=== PATIENT | female | born 1955 | race Caucasian/White ===

== ENCOUNTER 2018-10-06 17:58 | Emergency (ER) | payer BC, SELFPAY ==
[2018-10-06 17:59] VITALS: BP 131/78; PULSE 97; RESP 20; TEMP 36.7; O2SAT 98; BMI 21.3
[2018-10-06 18:00] VITALS: BP 128/75; PULSE 88; RESP 18; TEMP 36.8; O2SAT 97
[2018-10-06 18:30] LABS: Bacteria 0 SEEN /hpf (None Seen); Mucous, Urine 0 SEEN /hpf (<or=2+)
[2018-10-06 18:37] LABS: Color, Urine Yellow (Yellow); Glucose, Dipstick Normal (Normal); Ketone-Dipstick Negative (Negative); Leukocyte Esterase-Dipstick 25 /ul (Negative); Nitrite-Dipstick Negative (Negative); Occult Blood-Urine 150 /ul (Negative); Protein-Dipstick Negative (Negative); Urine Bilirubin Dipstick Negative (Negative); Urine Clarity Clear (Clear); Urine Urobilinogen Normal (Normal)
[2018-10-06 18:45] LABS: Squamous Epithelial Cells - UA 0-5 SEEN /hpf (5-10)
[2018-10-06 18:46] LABS: Hyaline Cast 0-5 SEEN /lpf (0-5)
[2018-10-06 18:47] LABS: Red Blood Cells-Urine 0-5 SEEN /hpf (0-5); Transitional Epithelial - Ur 0-5 SEEN /hpf (0-5); White Blood Cells 0-5 SEEN /hpf (0-5)
--- NOTE | 2018-10-06 19:07 | ED.DCSUM_ITS ---
- ER Visit Summary Date of Service: 10/06/18 Chief Complaint: Left flank pain History of Present Illness: The patient is a 63 F with left flank pain that started this morning. Pain comes and goes, but she states there is no rhyme or reason to what triggers the pain. She denies urinary symptoms. She had did have similar symptoms in the past with bladder or kidney infection and was concerned this might be starting again. Physical Examination: Vital signs unremarkable. Head neck examination is normal. Heart is regular rate and rhythm. Lungs sounds are slightly diminished throughout. Abdomen is soft nontender. Back examination reveals mild tenderness in the left mid to lower lumbar paraspinal region. No true CVA tenderness on my exam. Test Results: Urinalysis shows 0-5 white cells, 0-5 epithelial cells, and 0 bacteria. Emergency Department Course and Treatment: Test results were discussed with the patient. At this time there is no indication for antibiotics. She will continue to monitor her symptoms and take ibuprofen as needed for pain. She is to return for worsening symptoms or other concerns. Treatment Plan: [] Disposition: Discharge Impression: Left flank pain, uncertain etiology This note was generated with [employer] dictation software. It may contain incorrect words, spelling, and punctuation that were not noted in review of the chart prior to signing ED Disposition - Plan for ED Patient: Chief Complaint: Flank Pain Referrals: Hany Monroe MD [Primary Care Provider] -
--- NOTE | 2018-10-06 19:07 | ED.DEP ---
ED Disposition - Plan for ED Patient: Disposition: Home or Assisted Living Chief Complaint: Flank Pain Instructions: ED Flank Pain Uncertain Cause Referrals: Hany Monroe MD [Primary Care Provider] - 1 Week if not improving
[2018-10-06 19:17] VITALS: RESP 18
== END 2018-10-06 19:18 | disposition home or self-care (01) ==
PROVIDERS: Emergency Provider Emergency Medicine; Family Provider Family Medicine; PCP Family Medicine
DX: R10.9 Unspecified abdominal pain (principal); Z72.0 Tobacco use
CPT/HCPCS: 81001; 99282

== ENCOUNTER 2019-08-15 18:59 | Emergency (ER) | payer BC, SELFPAY ==
[2019-08-15 19:01] VITALS: BP 121/82; PULSE 89; RESP 16; TEMP 36.5; O2SAT 96; BMI 20.7
--- NOTE | 2019-08-15 19:24 | EKG12_ITS ---
Test Reason : CP Blood Pressure : / mmHG Vent. Rate : 075 BPM Atrial Rate : 075 BPM P-R Int : 122 ms QRS Dur : 076 ms QT Int : 392 ms P-R-T Axes : 077 066 078 degrees QTc Int : 437 ms Normal sinus rhythm Normal ECG Confirmed by BRAVO MALIK MD ([id number]), video news editor TU HERRERA ([id number]) on 08/20/2019 11:27:16 AM Referred By: Confirmed By:BRAVO MALIK MD
--- NOTE | 2019-08-15 19:25 | RAD_ITS ---
STUDY: X-RAY CHEST REASON FOR EXAM: Female, 64 years old. Cough TECHNIQUE: Frontal view of the chest COMPARISON: X-ray chest May 24, 2017 FINDINGS: The lungs are clear. There are no pleural effusions. There is no pneumothorax. The heart is normal in size. The visualized osseous structures are within normal limits. RAD/Chest 1 View (Portable) IMPRESSION: No acute thoracic pathology. Electronically Signed: Hany Wang, at 19:37 EST Tel , Service support ,
[2019-08-15 19:30] VITALS: O2SAT 100
--- NOTE | 2019-08-15 19:30 | ED.DCSUM_ITS ---
- ER Visit Summary Date of Service: 08/15/19 Chief Complaint: Fever History of Present Illness: The patient is a 64 F with a fever for about a week. Associated with cough, congestion, nausea. Today she had some lightheadedness and near syncope, so she came to the ED for an evaluation. The near syncope oc curred immediately after coughing episode. Her had similar symptoms recently. She has a history of COPD. She does not use oxygen. She denies any recent antibiotics or steroids. Physical Examination: Afebrile and vital signs unremarkable. Patient alert and oriented. No acute distress. HEENT exam grossly unremarkable. Heart regular. Lungs clear. Extremities soft nontender. Skin appears normal. Test Results: EKG, labs, chest x-ray, influenza testing pending. Emergency Department Course and Treatment: Patient treated with IV fluids while awaiting results. EKG, chest x-ray, labs, influenza testing all unremarkable. Patient likely has a viral illness. Given the duration of her symptoms and fevers, she was concerned and need antibiotics. We discussed the risks and potential benefits. She will be treated with azithromycin. We will also treat with Tessalon Perles. She has breathing treatments and inhalers at home. Follow-up with her doctor. Return for any new or worsening issues. Treatment Plan: As above Disposition: Discharge Impression: 1. Acute bronchitis This note was generated with [employer] ([employer]) dictation software. It may contain incorrect words, spelling, and punctuation that were not noted in review of the chart prior to signing ED Disposition - Plan for ED Patient: Instructions: Acute Bronchitis Prescriptions: Azithromycin 250 mg PO DAILY #4 tab Prescription Printed Benzonatate [Tessalon Perle] 100 mg PO TID PRN PRN #20 cap PRN Reason: Cough Prescription Printed Referrals: Hany Monroe MD [Primary Care Provider] -
[2019-08-15] MEDS: Aspirin 81 MG TAB.CHEW 324 MG PO (19:32)
[2019-08-15 20:02] LABS: Absolute Lymphocyte Count 1.85 X10^3/uL (0.83-4.51); Absolute Neutrophil Count 5.9 X10^3/uL (2.0-7.7); Basophil# 0.09 X10^3/uL; Eosinophil# 0.22 X10^3/uL; Eosinophils% 2.5 % (0-5); Hematocrit 48.5 % (37-47); Hemoglobin 15.5 g/dL (12.0-15.0); Lymphocyte # 1.85 X10^3/ul (4.0); Lymphocyte % 21.1 % (19-41); Mean Corpuscular Hgb 29.6 pg (27.0-32.0); Mean Corpuscular Volume 92.7 fL (81-99); Mean Platelet Vol. 10.7 fl (6.2-12.0); Monocyte# 0.72 X10^3/uL; Monocyte% 8.2 % (0-10); NRBC Flagged by Analyzer 0 % (0-5); Neutrophil # 5.87 X10^3/uL (2.7-7.7); Neutrophil % 66.9 % (47-70); Platelet Count 242 K/mm3 (150-450); RBC Distribution Width CV 13.1 % (11.6-14.6); RBC Distribution Width SD 44.4 fl (35.1-43.9); Red Blood Count 5.23 M/mm3 (4.2-5.4); White Blood Count 8.8 K/mm3 (4.4-11.0)
[2019-08-15 20:15] LABS: Anion Gap 8 (5-15); BUN 5 mg/dL (7-18); BUN/Creat Ratio 5.9 RATIO (10-20); Calcium,Total 8.8 mg/dL (8.5-10.1); Chloride 103 mmol/L (98-107); Creatinine, Serum 0.85 mg/dL (0.55-1.02); EST Glomerular Filtration Rate 71 mL/min (>60); Est Glom Filt Rate - Afr Amer 86 mL/min (>60); Estimated Creatinine Clearance 49.96 ml/min; Glucose 125 mg/dL (74-106); Potassium 3.4 mmol/L (3.5-5.1); Sodium Level 135 mmol/L (136-145)
--- NOTE | 2019-08-15 20:35 | ED.DEP ---
ED Disposition - Plan for ED Patient: Instructions: Acute Bronchitis Prescriptions: Azithromycin 250 mg PO DAILY #4 tab Prescription Printed Guaifenesin 5 ml PO Q4H PRN PRN #100 ml PRN Reason: Cough Prescription Printed Benzonatate [Tessalon Perle] 100 mg PO TID PRN PRN #20 cap PRN Reason: Cough Prescription Printed Referrals: Hany Monroe MD [Primary Care Provider] -
[2019-08-15] MEDS: Azithromycin 250 MG Tablet 500 MG PO (20:42)
[2019-08-15 20:49] VITALS: BP 164/93; PULSE 77; RESP 15; O2SAT 99
== END 2019-08-15 20:51 | disposition home or self-care (01) ==
LOC: ED 19:20
PROVIDERS: Emergency Provider Emergency Medicine; Family Provider Family Medicine; PCP Family Medicine
DX: J44.0 Chronic obstructive pulmonary disease with (acute) lower respiratory infection (principal); J20.9 Acute bronchitis, unspecified; R55 Syncope and collapse; Z72.0 Tobacco use
CPT/HCPCS: 71045; 80048; 84484; 85025; 87804; 93005; 96360; 99285; J7040; A4216

== ENCOUNTER 2019-09-28 21:50 | Emergency (ER) | payer BC, SELFPAY ==
[2019-09-28 21:51] VITALS: BP 130/79; PULSE 100; RESP 24; TEMP 37.1; O2SAT 94; BMI 20.9
--- NOTE | 2019-09-28 23:17 | RAD_ITS ---
STUDY: X-RAY CHEST REASON FOR EXAM: Female, 64 years old. cough, fever -- x several days TECHNIQUE: Frontal and lateral views of the chest. COMPARISON: None. FINDINGS: There is hyperinflation of the lungs consistent with chronic obstructive lung disease (COPD). There is no demonstrated pleural abnormality. Normal size heart. Normal mediastinum and angel. Normal visualized pulmonary arteries. Normal visualized aortic arch and descending thoracic aorta. Normal visualized thoracic spine. Normal visualized ribs, clavicles, and shoulders. There is no demonstrated abnormality of the visualized soft tissue structures of the upper abdomen. RAD/Chest PA and Lateral IMPRESSION: There is hyperinflation of the lungs consistent with chronic obstructive lung disease (COPD). Electronically Signed: Peña Bermudez, at 1:46 EST Tel , Service support ,
--- NOTE | 2019-09-28 23:17 | ED.VIS.GEN ---
History of Present Illness Chief Complaint: Cough Narrative: Patient is a 64-year-old female who presents with a cough. When she woke yesterday morning she had sinus congestion, nasal drainage, sore throat. She has had a productive cough and increased wheezing. No muscle aches joint aches vomiting diarrhea. She complains of chest tightness but no chest pain. She has a history of COPD but really no other medical history. No sick contacts. She complains of subjective fever but has not checked a temperature. Past Medical History - Allergies and Home Meds Allergies/Adverse Reactions: Allergies amoxicillin [From Augmentin] Allergy (Verified 09/28/19 21:51) Rash clavulanic acid [From Augmentin] Allergy (Verified 09/28/19 21:51) Rash Primary Care Physician: Hany Monroe MD [Primary Care Provider] - Past Medical History: - - COPD Surgical History: noncontributory Smoking Status: Current every day smoker Review of Systems All systems negative except as indicated General: Reports: Chills, Sweats Eyes: Denies: Visual changes - bilaterally ENT: Reports: Rhinorrhea, Sore throat. Denies: Bilateral ear pain Cardiovascular: Denies: Chest pain Respiratory: Reports: Dyspnea, Cough, Sputum Gastrointestinal: Denies: Nausea, Vomiting Musculoskeletal: Denies: Myalgias, Arthralgias Skin: Denies: Rash Neurological: Denies: Headache Allergy: Denies: Uticaria Physical Exam Vital Signs/Narrative: Vital Signs Temp Pulse Resp BP Pulse Ox 09/28/19 21:51 98.8 F 100 24 H 130/79 H 94 Inital Vital Signs reviewed: Yes General: Well nourished Head: Normocephalic Eyes: EOMI ENT: Moist mucous membranes Neck: Supple Cardiovascular: Regular rate, Regular rhythm Respiratory: Wheezing, - - Tachypneic but not in distress, able to speak in full sentences, diffuse wheezing Abdomen: Soft, Nontender Skin: Normal color Neurological: Alert Psychological: Normal affect Diagnostic/Tx/Re-eval - Medical Decision Making Chest x-ray on my review shows chronic changes, no focal infiltrate or acute process. Rapid influenza is negative. Patient was given albuterol and Atrovent aerosols. I do believe this is related to viral bronchitis and COPD exacerbation. She was given first doses of prednisone and doxycycline here as well as prescriptions for the same and was discharged home. ED Disposition - Plan for ED Patient: Disposition: Home or Assisted Living Diagnosis: COPD exacerbation Instructions: Copd Flare Prescriptions: Doxycycline 100 mg PO BID #20 cap Prescription Printed predniSONE tablet 60 mg PO DAILY #12 tab Prescription Printed Referrals: Hany Monroe MD [Primary Care Provider] -
[2019-09-28 23:41] VITALS: PULSE 94; RESP 22
[2019-09-28] MEDS: Ipratropium/Albuterol Sulfate 3 ML AMPUL.NEB INHALATION (23:41)
[2019-09-28] MEDS: Albuterol 2.5 MG/3 ML VIAL.NEB. INHALATION (23:54)
[2019-09-28 23:55] VITALS: BP 131/70; PULSE 92; RESP 18; O2SAT 93
[2019-09-29] MEDS: predniSONE 20 MG Tablet 60 MG PO (01:02)
[2019-09-29] MEDS: Doxycycline 100 MG CAPSULE PO (01:02)
[2019-09-29 01:04] VITALS: PULSE 98; RESP 16; O2SAT 93
== END 2019-09-29 01:05 | disposition home or self-care (01) ==
PROVIDERS: Emergency Provider Emergency Medicine; Family Provider Family Medicine; PCP Family Medicine
DX: J44.1 Chronic obstructive pulmonary disease with (acute) exacerbation (principal); F17.200 Nicotine dependence, unspecified, uncomplicated; Z88.1 Allergy status to other antibiotic agents; Z88.0 Allergy status to penicillin
CPT/HCPCS: 71046; 87804; 94640; 99283

== ENCOUNTER 2019-11-08 06:27 | Day surgery (SDC) | payer BC, SELFPAY ==
[2019-10-31 09:29] VITALS: BMI 20.2
[2019-11-07 07:56] VITALS: BMI 20.2
--- NOTE | 2019-11-08 08:30 | CL.D_ITS ---
Patient Name: DEEPTI BRITTON Study Date: 11/08/2019 Performing: Raul Loyd MD Ht: 59.05 inches 150 cm : 1955 Wt: 99.2 lbs 45 kg Age: 64 Gender: female BSA: 1.37 PROCEDURE(S) PERFORMED [id number]/COR/LV CLINICAL PROFILE AND INDICATIONS Indications: Cardiomyopathy Heart Failure: None Stress/Imaging Stress/Image Study Performed: No CAD Presentations: No Sxs, no angina. CONCLUSIONS Non obstructive coronary arteries RECOMMENDATIONS Medical therapy DESCRIPTION OF PROCEDURE The patient arrived to the procedure lab. The risks and benefits of the procedure as well as a full d escription of our services here and current unavailability of surgical backup were fully explained to the patient and/or their significant other prior to the catheterization. The Timeout was completed, verifying the correct patient and procedure. The patient's procedural site was prepped and draped in the usual fashion. Local anesthetic was given subcutaneously to right groin region with Lidocaine 2%. Using a modified Seldinger technique, Left Coronary Artery selective angiography was performed in multiple views using a 5 Fr. JL4 catheter. Right Coronary Artery selective angiography was then perfo rmed in multiple views using a 5 Fr. 3DRC (Mendoza) catheter. Left Ventriculography was performed in HORNE projection using a 5 Fr. Pigtail catheter. LV to AO pullback pressures were then recorded.The ar terial sheath was pulled and manual compression applied until hemostasis is achieved. CORONARY ANGIOGRAPHY DOMINANCE: Left Dominant LEFT HEART ASSESSMENT Left Ventricular Ejection Fraction: by LV Gram 55 % Normal LV wall motion Normal Left Ventricular systolic function LEFT MAIN: Angiographically normal LEFT ANTERIOR DESCENDING ARTERY: Angiographically normal SEPTAL: 50 % Stenosis CIRCUMFLEX ARTERY: No significant disease noted RIGHT CORONARY ARTERY: Angiographically normal COMPLICATIONS No Complications PROCEDURE MEDICATIONS Versed 1 mg IV Versed 1 mg IV Oxygen: 2 L/min via nasal cannula Baby Aspirin (81mg) 1 Tabs PO @ 11/08/2019 07:06:10 SUMMARY OF HEMODYNAMIC DATA Time AIR REST ECG 07:09:10 AO 121/64 (88) SA 08:06:10 LV 127/6, 13 08:12:11 LV 114/-1, 11 08:12:38 LV 116/11, 18 08:13:32 LVp 119/6, 17 08:13:36 AO 118/64 (87) 08:13:41 Signed By Raul Loyd MD On 11/08/2019 08:29:30 Raul Loyd MD
== END 2019-11-08 13:45 | disposition home or self-care (01) ==
LOC: CLSP 06:28
PROVIDERS: PCP Family Medicine; Referring Provider Internal Medicine Cardiovascular Disease; Visit Provider Internal Medicine Cardiovascular Disease
DX: I42.8 Other cardiomyopathies (principal); I50.23 Acute on chronic systolic (congestive) heart failure; J44.9 Chronic obstructive pulmonary disease, unspecified; E78.5 Hyperlipidemia, unspecified; Z79.82 Long term (current) use of aspirin; Z79.899 Other long term (current) drug therapy; Z87.891 Personal history of nicotine dependence
CPT/HCPCS: 93458; 99152; 99153; J7040; Q9967; C1769; C1894

== ENCOUNTER 2021-09-29 11:30 | Inpatient (IN) | payer BC, MEDICARE, SELFPAY ==
[2021-09-29] VITALS (14 sets, daily range): BP systolic 106–145; BP diastolic 54–104; PULSE 70–82; RESP 17–24; TEMP 36.2–37; O2SAT 80–96; BMI 22.2; BMI 21.9
--- NOTE | 2021-09-29 11:46 | EKG12_ITS ---
Test Reason : SOB Blood Pressure : / mmHG Vent. Rate : 077 BPM Atrial Rate : 077 BPM P-R Int : 136 ms QRS Dur : 068 ms QT Int : 518 ms P-R-T Axes : 067 037 088 degrees QTc Int : 586 ms Normal sinus rhythm Nonspecific T wave abnormality Abnormal ECG Confirmed by KING SILVA, BRAVO ([id number]), sports editor DULCE PITTMAN ([id number]) on 10/05/2021 10:21:32 AM Referred By: ARTURO Confirmed By:BRAVO MALIK MD
[2021-09-29 12:22] LABS: Absolute Lymphocyte Count 1.16 X10^3/uL (0.83-4.51); Absolute Neutrophil Count 4.9 X10^3/uL (2.0-7.7); Basophil# 0.02 X10^3/uL; Basophil% 0.3 % (0-1); Hematocrit 43.8 % (37-47); Hemoglobin 14.4 g/dL (12.0-15.0); Lymphocyte # 1.16 X10^3/ul (0.83-4.51); Lymphocyte % 16.9 % (19-41); Mean Corp Hgb Conc 32.9 g/dL (32-36); Mean Corpuscular Volume 88.3 fL (81-99); Mean Platelet Vol. 11.2 fl (6.2-12.0); Monocyte# 0.76 X10^3/uL; Monocyte% 11.1 % (0-10); NRBC Flagged by Analyzer 0 % (0-5); Neutrophil # 4.89 X10^3/uL (2.7-7.7); Neutrophil % 71.1 % (47-70); Platelet Count 158 K/mm3 (150-450); RBC Distribution Width CV 13.7 % (11.6-14.6); RBC Distribution Width SD 44.5 fl (35.1-43.9); Red Blood Count 4.96 M/mm3 (4.2-5.4); White Blood Count 6.9 K/mm3 (4.4-11.0)
--- NOTE | 2021-09-29 12:25 | RAD_ITS ---
STUDY: X-RAY CHEST REASON FOR EXAM: Female, 66 years old. sob cough TECHNIQUE: AP COMPARISON: 09/28/2019 FINDINGS: Lungs are hyperexpanded. Reticular and ill-defined opacities in the lung bases, left more than right appear new since the prior study. There is no demonstrated pleural abnormality. Normal size heart. Normal mediastinum and angel. Normal visualized pulmonary arteries. Atherosclerosis of the aortic arch. No acute bony process. There is no demonstrated abnormality of the visualized soft tissue structures of the upper abdomen. RAD/Chest 1 View (Portable) IMPRESSION: 1. Left more than right basilar infiltrates suggesting early pneumonia although could partly be due to overlying breast/chest attenuation artifact. Electronically Signed: Todd Birmingham MD (Brooks) at 12:35 EST , Service support ,
[2021-09-29 12:36] LABS: AST(SGOT) 18 U/L (15-37); Alanine Aminotransfer ALT/SGPT 18 U/L (13-56); Alkaline Phosphatase 97 U/L (45-117); Anion Gap 7 (5-15); BNP,B-Type NATRIURETIC PEPTIDE 49.4 pg/mL (0-100); BUN 10 mg/dL (7-18); BUN/Creat Ratio 13.2 RATIO (10-20); Bilirubin, Direct 0.14 mg/dL (0.00-0.30); Calcium,Total 8.6 mg/dL (8.5-10.1); Chloride 103 mmol/L (98-107); Creatinine, Serum 0.76 mg/dL (0.55-1.02); EST Glomerular Filtration Rate 81 mL/min (>60); Est Glom Filt Rate - Afr Amer 98 mL/min (>60); Estimated Creatinine Clearance 58.13 ml/min; Globulin 4.1 g/dL (2.2-4.2); Glucose 124 mg/dL (74-106); Potassium 3.3 mmol/L (3.5-5.1); Protein, Total 7.1 g/dL (6.4-8.2); Sodium Level 139 mmol/L (136-145)
[2021-09-29 13:06] LABS: D-Dimer Quantitative (DVT/PE) 0.74 FEU/ug/m (0.27-0.49)
--- NOTE | 2021-09-29 13:23 | CT_ITS ---
STUDY: CTA CHEST REASON FOR EXAM: Female, 66 years old. hypoxia RADIATION DOSAGE (If Supplied By Facility): CTDIvol = ( ) mGy, DLP = ( ) mGycm TECHNIQUE: The examination was performed with the intravenous administration of IV 100mL Isovue-370. Post-processing of the angiographic images was performed, with multiplanar reformation and 3D reconstruction. Individualized dose optimization techniques were used for this CT. COMPARISON: 05/17/2017, chest x-ray earlier today FINDINGS: Normal enhancement of the main pulmonary artery and right and left pulmonary arteries. Normal enhancement of the bilateral peripheral pulmonary arteries. There is no demonstrated pulmonary embolism. Normal thoracic aorta and visualized great vessels. There is no demonstrated aortic dissection. Normal heart and pericardium. Normal mediastinum. Normal hilar regions. Normal visualized trachea and bronchi. The lungs are well expanded. Mild bilateral apical scarring. Moderate emphysema. Some bibasilar scarring. Normal pleura. Normal chest wall structures. Normal osseous structures. Normal visualized upper abdomen. CT/CTA Chest W/WO Contrast IMPRESSION: Normal CTA chest examination, without a demonstrated pulmonary embolism or arterial dissection. Electronically Signed: Eloy Bernstein MD at 14:38 EST Tel , Service support ,
--- NOTE | 2021-09-29 14:26 | EDS_ITS ---
HPI History of Present Illness Chief Complaint: Shortness of Breath Narrative Narrative: 66-year-old female presenting with viral symptoms of cough, fever, chills, shortness of breath. Patient states that she was previously hospitalized and had leftover oxygen at home. She has not had to use this until recently. Patient states she has a history of COPD and this is why she was initially placed on oxygen. She denies chest pain. She has not been vaccinated for COVID-19. Patient states he does not believe she has had COVID-19. She is unsure of any sick contacts. [facility] Medical History Acute on chronic systolic (congestive) heart failure Acute respiratory failure with hypoxemia (10/2019) Brown recluse spider bite Chronic systolic (congestive) heart failure COPD (chronic obstructive pulmonary disease) Diverticulosis Hyperlipidemia Lung nodule < 6cm on CT Mycoplasma pneumonia (10/2019) Nicotine dependence Non-ischemic cardiomyopathy Home Medications aspirin 81 mg tablet,delayed release 81 mg PO DAILY 10/31/19 [History Last Taken 11/08/19] atorvastatin 40 mg tablet 40 mg PO QHS 10/31/19 [History Last Taken Unknown] fluticasone fur. 100 mcg-umeclid 62.5 mcg-vilant 25 mcg inhalat.powder 1 inh INHALATION DAILY 11/10/20 [History Last Taken Unknown] diphenhydramine HCl 25 mg tablet 25 mg PO QHS 07/30/21 [History Last Taken Unknown] guaifenesin 600 mg tablet, extended release 12 hr 600 mg PO BID 07/30/21 [History Last Taken Unknown] hydroxyzine HCl 25 mg tablet 25 mg PO BID tab 07/30/21 [History Last Taken Unknown] carvedilol 3.125 mg tablet 6.25 mg PO BID #180 tab 09/10/21 [Rx Last Taken Unknown] metoprolol succinate 25 mg PO DAILY 09/29/21 [History Last Taken Unknown] Allergy/AdvReac Type Severity Reaction Status Date / Time amoxicillin [From Augmentin] Allergy Rash Verified 08/13/21 11:54 clavulanic acid Allergy Rash Verified 08/13/21 11:54 [From Augmentin] Family History Mother CAD (coronary artery disease) Surgical History History of left heart catheterization (11/08/19) History of partial hysterectomy Social History Smoking Status: Former smoker quit date: 09/26/19 pack-years: 23 how long ago did patient quit smokin years ago alcohol intake: never substance use type: does not use caffeine: Yes Type: coffee Number of servings: 1 ROS ROS ED Constitutional Constitutional ED: Reports chills and fever(s) Eyes Eyes: Denies blurry vision or diplopia ENT ENT ED: Denies rhinorrhea or sore throat Cardiovascular Cardiovascular: Denies chest pain or palpitations Respiratory/Chest Respiratory/Chest: Reports cough and dyspnea Gastrointestinal Gastrointestinal: Denies abdominal pain or nausea Genitourinary Genitourinary ED: Denies dysuria or hematuria Musculoskeletal Musculoskeletal: Reports myalgias; Denies arthralgias Integumentary Denies abscess or rash Neurologic Neurologic: Denies headache(s) or weakness Psychiatric Psychiatric: Denies anxiety or depression EXAM Physical Exam Const Vital Signs: 09/29/21 11:30 09/29/21 12:14 Temperature 97.6 F L 98.6 F Temperature Source Temporal Temporal Pulse Rate 82 80 Respiratory Rate 24 H 19 H Respiratory Effort Short of Breath Labored Accessory Muscle Use Respiratory Depth Normal Respiratory Pattern Hyperpnea Blood Pressure 118/104 H 106/78 Blood Pressure Mean 108 87 Pulse Ox 80 95 Oxygen Delivery Method Room Air Nasal Cannula Oxygen Flow Rate (L/min) 2 Positive well nourished General Appearance ED: NAD; Negative for pallor HEENT Reports moist mucous membranes atraumatic Eyes PERRL and EOMs intact bilaterally Neck no lymphadenopathy and supple Resp normal respiratory effort and clear to auscultation bilaterally Cardio regular rate and regular rhythm Neuro oriented x3 and CN's II-XII intact bilaterally Sensorium / Orientation: alert Psych mental status grossly normal Thought Process: normal thought process Skin General Skin Exam: Negative for jaundice or pallor Rashes: no rashes MDM MDM MDM Narrative Medical decision making narrative: Patient seen and evaluated for shortness of breath. Her lungs are clear to auscultation however she is hypoxic on oxygen. She is given dexamethasone and tested for COVID-19 and she is positive. I did order her breathing treatments however she declined this. Her CBC is unremarkable. CMP is also unremarkable with exception of potassium 3.3. BNP is 49. Chest x-ray on my interpretation is left greater than right lower lobe infiltrates. Radiologist does agree. D-dimer is elevated at 0.[address] of the chest is obtained which shows no pulmonary emboli or dissection. Patient remained hypoxic. When I reevaluated her she was on 3-1/2 L and 89% in bed sitting. Ultimately should she is requiring so much oxygen I recommended that she be admitted for further treatment. Discussed with hospitalist for admission. Impression: 1. COVID-19 pneumonitis 2. Hypoxic respiratory failure Lab Data Attestation: I reviewed the patient's lab results. Labs: Laboratory Results - last 24 hr 09/29/21 09/29/21 09/29/21 12:08 12:08 12:08 WBC 6.9 RBC 4.96 Hgb 14.4 Hct 43.8 MCV 88.3 MCH 29.0 MCHC 32.9 RDW Std Deviation 44.5 H RDW Coeff of Aminah 13.7 Plt Count 158 MPV 11.2 Immature Gran % (Auto) 0.600 Neut % (Auto) 71.1 H Lymph % (Auto) 16.9 L Dorado % (Auto) 11.1 H Eos % (Auto) 0.0 Baso % (Auto) 0.3 Absolute Neuts (auto) 4.9 Absolute Lymphs (auto) 1.16 Nucleated RBC % 0 D-Dimer Quant (PE/DVT) Sodium 139 Potassium 3.3 L Chloride 103 Carbon Dioxide 29.0 Anion Gap 7 BUN 10 Creatinine 0.76 Estim Creat Clear Calc 58.13 Est GFR (MDRD) Af Amer 98 Est GFR (MDRD) Non-Af 81 BUN/Creatinine Ratio 13.2 Glucose 124 H Calcium 8.6 Total Bilirubin 0.50 Direct Bilirubin 0.14 AST 18 ALT 18 Alkaline Phosphatase 97 B-Natriuretic Peptide 49.4 Total Protein 7.1 Albumin 3.0 L Globulin 4.1 09/29/21 12:08 WBC RBC Hgb Hct MCV MCH MCHC RDW Std Deviation RDW Coeff of Aminah Plt Count MPV Immature Gran % (Auto) Neut % (Auto) Lymph % (Auto) Dorado % (Auto) Eos % (Auto) Baso % (Auto) Absolute Neuts (auto) Absolute Lymphs (auto) Nucleated RBC % D-Dimer Quant (PE/DVT) 0.74 H* Sodium Potassium Chloride Carbon Dioxide Anion Gap BUN Creatinine Estim Creat Clear Calc Est GFR (MDRD) Af Amer Est GFR (MDRD) Non-Af BUN/Creatinine Ratio Glucose Calcium Total Bilirubin Direct Bilirubin AST ALT Alkaline Phosphatase B-Natriuretic Peptide Total Protein Albumin Globulin Radiography Diagnostic Testing: Clinical Impression(s) from Imaging Studies Chest X-Ray 09/29/21 12:25 IMPRESSION: 1. Left more than right basilar infiltrates suggesting early pneumonia although could partly be due to overlying breast/chest attenuation artifact. Electronically Signed: Todd Birmingham MD (Brooks) at 12:35 EST , Service support , Chest CTA 09/29/21 13:23 IMPRESSION: Normal CTA chest examination, without a demonstrated pulmonary embolism or arterial dissection. Electronically Signed: Eloy Bernstein MD at 14:38 EST Tel , Service support , Discharge Plan Triage Chief Complaint: Shortness of Breath ED Provider: Herve Sanchez Dx/Rx/DC Orders Prescriptions: No Action aspirin [Adult Aspirin Regimen] 81 mg tablet,delayed release (DR/EC) 81 mg PO DAILY RF: 0 atorvastatin 40 mg tablet 40 mg PO QHS RF: 0 Trelegy Ellipta 100-62.5-25 mcg blister with device 1 inh INHALATION DAILY RF: 0 hydroxyzine HCl 25 mg tablet 25 mg PO BID RF: 0 guaifenesin [Mucinex] 600 mg tablet extended release 12hr 600 mg PO BID RF: 0 diphenhydramine HCl [Allergy Relief(diphenhydramin)] 25 mg tablet 25 mg PO QHS RF: 0 metoprolol succinate 25 mg tablet extended release 24 hr 25 mg PO DAILY RF: 0 carvedilol 3.125 mg tablet 6.25 mg PO BID Qty: 180 RF: 3 Primary Care Provider: Hany Monroe
[2021-09-29] MEDS: dexAMETHasone 10 MG/ML Vial 6 MG IV (14:57)
--- NOTE | 2021-09-29 15:11 | HP.PCM.HOS_ITS ---
HPI - General General Date of Admission: 09/29/21 Date of Service: 09/29/21 Chief Complaint: Dyspnea, cough. HPI Narrative The patient is a 66 y/o F w/ PMHx: Systolic CHF/Non-ischemic cardiomyopathy, HTN, HLD, COPD, Hx Tobacco use who presents to the [facility] ED on 09/29/21 with history of onset COVID type symptoms on Monday with fever, chills, nausea, emesis, diarrhea, body aches, cough and dyspnea with unvaccinated COVID status prompting her to use as needed oxygen which she had at home from her prior admission 06/2021 with pneumonia at outside facility however she remained continuously hypoxic and had increased work of breathing prompting ED evaluation. The is also present and is unvaccinated but denies any current symptoms. Work-up in the ED included T 97.6, heart rate 82, BP 118/104, respiratory rate 24, initially 80% on room air with improvement to 95% on 2 L nasal cannula, CBC with WBC 6.9, hemoglobin 14.4, platelet 158 without marked shift, D-dimer 0.74, CMP with potassium 3.3, glucose 124, hepatic profile other pardo unremarkable, BNP 49.4, chest x-ray with left greater than right basilar infiltrates consistent with early pneumonia, CTPA however with no evidence of pulmonary emboli or arterial dissection with well-expanded lungs and noted mild apical bilateral scarring with moderate emphysematous changes and some bibasilar scarring, Covid rapid antigen positive. In the ED patient ministered Decadron therapy and attempted aerosols however declined. [facility] Medical History (Updated 09/29/21 @ 19:[address] Sri Read MD) Acute on chronic systolic (congestive) heart failure Acute respiratory failure with hypoxemia (10/2019) Brown recluse spider bite Chronic systolic (congestive) heart failure Congestive heart failure (CHF) COPD (chronic obstructive pulmonary disease) Diverticulosis Former smoker Hyperlipidemia Lung nodule < 6cm on CT Mycoplasma pneumonia (10/2019) Nicotine dependence Non-ischemic cardiomyopathy On home oxygen therapy Pneumonia due to COVID-19 virus Home Medications aspirin 81 mg tablet,delayed release 81 mg PO DAILY 10/31/19 [History Last Taken 09/28/21] atorvastatin 40 mg tablet 40 mg PO QHS 10/31/19 [History Last Taken 09/28/21] fluticasone fur. 100 mcg-umeclid 62.5 mcg-vilant 25 mcg inhalat.powder 1 inh INHALATION DAILY 11/10/20 [History Last Taken 09/29/21] guaifenesin 600 mg tablet, extended release 12 hr 600 mg PO BID 07/30/21 [History Last Taken 09/29/21] hydroxyzine HCl 25 mg tablet 25 mg PO BID tab 07/30/21 [History Last Taken 09/29/21] carvedilol 3.125 mg tablet 6.25 mg PO BID #180 tab 09/10/21 [Rx Last Taken 09/29/21] diphenhydramine HCl [Sleep Time] 25 mg PO QHS 09/29/21 [History Last Taken 09/28/21] phenylephrine HCl [Sudafed PE] 10 mg PO BID 09/29/21 [History Last Taken 09/29/21] Allergy/AdvReac Type Severity Reaction Status Date / Time amoxicillin [From Augmentin] Allergy Rash Verified 08/13/21 11:54 clavulanic acid Allergy Rash Verified 08/13/21 11:54 [From Augmentin] Family History (Updated 09/29/21 @ 19:[address] Sri Read MD) Mother CAD (coronary artery disease) Father Heart disease s/p pacemaker status. Surgical History (Updated 09/29/21 @ 19:[address] Sri Read MD) History of left heart catheterization (11/08/19) History of partial hysterectomy S/P chest tube placement Social History (Updated 09/29/21 @ 19:[address] Sri Read MD) household members: spouse Smoking Status: Former smoker quit date: 09/26/19 pack-years: 23 how long ago did patient quit smoking: Quit 09/26/2019, smoked 1/2 ppd since teen. alcohol intake: never substance use type: does not use caffeine: Yes Type: coffee Number of servings: 1 ROS ROS Narrative Admission Review of Systems: CONSTITUTIONAL: No weight loss, + fever, chills, weakness or fatigue. HEENT: + Headache. Eyes: No visual loss, blurred vision, double vision or yellow sclerae. Ears, Nose, Throat: No hearing loss, sneezing. SKIN: No rash or itching, lesions, wounds. CARDIOVASCULAR: No chest pain, chest pressure or chest discomfort, palpitations, edema, orthopnea, syncopal events. RESPIRATORY: + shortness of breath, cough, No marked sputum, wheezing, hemoptysis. GASTROINTESTINAL: + anorexia, nausea, vomiting, diarrhea, No abdominal pain, melena, BRBPR. GENITOURINARY: No dysuria, frequency, urgency or retention. NEUROLOGICAL: + headache, No dizziness, syncope, paralysis, ataxia, numbness or tingling in the extremities, focal weakness, change in bowel or bladder control, seizure. MUSCULOSKELETAL: + muscle, back pain, joint pain or stiffness. HEMATOLOGIC: No anemia, bleeding or bruising. LYMPHATICS: No enlarged nodes. No history of splenectomy. PSYCHIATRIC: No history of depression or anxiety. ENDOCRINOLOGIC: No reports of sweating, cold or heat intolerance. No polyuria or polydipsia. ALLERGIES: No history of asthma, hives, eczema or rhinitis. Vital Signs Vital Signs Vital Signs: 09/29/21 11:30 09/29/21 12:14 Temperature 97.6 F L 98.6 F Temperature Source Temporal Temporal Pulse Rate 82 80 Respiratory Rate 24 H 19 H Respiratory Effort Short of Breath Labored Accessory Muscle Use Respiratory Depth Normal Respiratory Pattern Hyperpnea Blood Pressure 118/104 H 106/78 Blood Pressure Mean 108 87 Pulse Ox 80 95 Oxygen Delivery Method Room Air Nasal Cannula Oxygen Flow Rate (L/min) 2 Weight Weight: 110 lb Body Mass Index (BMI) 22.2 Physical Exam Narrative Physical Examination: General: Awake, alert, oriented x 3 and cooperative, seated upright in the ED bed, fatigued and ill-appearing, mildly increased respiratory rate. Skin: Normal color, normal turgor, no icterus, no cyanosis. HEENT: AT/NC, EOMI, PERRLA, moderately dry MM, no carotid bruits or JVD noted. Lungs: Diffusely diminished, greater bases, increased respiratory rate, increased work of breathing, no rales, ronchi or wheezing. Heart: Regular rate and regular rhythm; no gallop, rub audible. Abdomen: Soft, NTTP, ND, distant hyperactive bowel sounds, no HSM. Extremities: No cyanosis, clubbing, or edema. Neurological: Patient awake, alert, oriented as noted, cognitive function intact; pupils equally reactive to light and accommodation, cranial nerves II- XII grossly normal, moving all 4 extremities, no focal deficits, strength severely globally decreased secondary to acute presentation. Psychiatric: Affect appears fatigued, ill-appearing, evidence of respiratory distress, no acute evidence of depressive or anxiety feelings. Results Lab / Micro Data Result Diagrams: 09/29/21 12:08 09/29/21 12:08 Labs: Laboratory Results - last 24 hr 09/29/21 12:08: WBC 6.9, RBC 4.96, Hgb 14.4, Hct 43.8, MCV 88.3, MCH 29.0, MCHC 32.9, RDW Std Deviation 44.5 H, RDW Coeff of Aminah 13.7, Plt Count 158, MPV 11.2, Immature Gran % (Auto) 0.600, Neut % (Auto) 71.1 H, Lymph % (Auto) 16.9 L, Eddy % (Auto) 11.1 H, Eos % (Auto) 0.0, Baso % (Auto) 0.3, Absolute Neuts (auto) 4.9, Absolute Lymphs (auto) 1.16, Nucleated RBC % 0 09/29/21 12:08: Sodium 139, Potassium 3.3 L, Chloride 103, Carbon Dioxide 29.0, Anion Gap 7, BUN 10, Creatinine 0.76, Estim Creat Clear Calc 58.13, Est GFR (MDRD) Af Amer 98, Est GFR (MDRD) Non-Af 81, BUN/Creatinine Ratio 13.2, Glucose 124 H, Calcium 8.6, Total Bilirubin 0.50, Direct Bilirubin 0.14, AST 18, ALT 18, Alkaline Phosphatase 97, Total Protein 7.1, Albumin 3.0 L, Globulin 4.1 09/29/21 12:08: B-Natriuretic Peptide 49.4 09/29/21 12:08: D-Dimer Quant (PE/DVT) 0.74 H* Micro: Microbiology 09/29/21 12:05 Nasal Secretion SARS-CoV-2 Antigen (Rapid) - Final SARS-CoV-2 (COVID 19) Radiology Impression Chest X-Ray 09/29/21 12:25 IMPRESSION: 1. Left more than right basilar infiltrates suggesting early pneumonia although could partly be due to overlying breast/chest attenuation artifact. Electronically Signed: Todd Birmingham MD (Brooks) at 12:35 EST , Service support , Chest CTA 09/29/21 13:23 IMPRESSION: Normal CTA chest examination, without a demonstrated pulmonary embolism or arterial dissection. Electronically Signed: Eloy Bernstein MD at 14:38 EST Tel , Service support , Assessment & Plan Assessment/Plan (1) Acute respiratory failure with hypoxia: PLAN: The patient is a 66 y/o F w/ PMHx: Systolic CHF/Non-ischemic cardiomyopathy, HTN, HLD, COPD, Hx Tobacco use who presents to the [facility] ED on 09/29/21 with history of onset COVID type symptoms on Monday with fever, chills, nausea, emesis, diarrhea, body aches, cough and dyspnea with unvaccinated COVID status prompting her to use as needed oxygen which she had at home from her prior admission 06/2021 with pneumonia at outside facility however she remained continuously hypoxic and had increased work of breathing prompting ED evaluation. #1. Acute Hypoxic Respiratory Failure secondary to Acute Viral Syndrome, COVID- 19: Will admit to the [facility] telemetry, maintain on COVID precautions, will maintain on oxygen with wean as tolerated to room air, PRN albuterol, HOB, IS parameters w/ pending sputum cultures, respiratory viral panel and urine antigens, will obtain procalcitonin, CRP, CPK, Ferritin, LDH, continue supportive care including q 2 hour turning including prone given no prone bed availability and judicious hydration, closely monitor for worsening status for ARDS and multiorgan failure, will initiate and continue IV decadron x 10 doses, given presentation will also initiate IV remdesivir but defer to discretion of Infectious disease. If respiratory status worsens and patient requires airvo or BIPAP transition will initiate barcitinib regimen additionally with ID involvement. #2. Hypokalemia: Admission K+ 3.3, magnesium level requested, supplementation given, repeat level in AM. #3. Mild hyperglycemia: Admission glucose 124, likely stress response, will obtain A1c to be cautious. #4. Systolic CHF/nonischemic cardiomyopathy: We will continue patient aspirin, statin, beta-dahiana therapy, not on MARILYNN inhibitor/ARB, defer to outpatient. #5. Hypertension: Continue home regimen including beta-dahiana with hold parameters as needed, PRN hydralazine. #6. Hyperlipidemia: We will continue patient on statin therapy. #7. Chronic COPD: Patient refusing aerosols as these make her very anxious, will continue therefore patient home inhaler as well as as needed albuterol inhaler if needed, encourage head of bed, I-S, continue treatments as noted above #1. #8. Former tobacco use: Encourage continued tobacco cessation. #9. DVT prophylaxis: SCDs, Lovenox. #10. CODE status: Patient does not have healthcare power of business attorney nor living will in place. Given Covid pneumonia with significant hypoxia in the setting of unvaccinated status, discussed CODE status at length including difference between FULL code, DNR-CCA and DNR-CC status. Following discussions about the differences in these status, requested Full Code status. Amenable to airvo, BIPAP, remdesivir and barcitinib if appropriate. Advanced Care Planning Face to Face Time: 16 minutes. Charges/Coding Visit Charges Inpatient E&M: 26037 Init Hosp L3 Procedures Hospitalists Procedures: 34067 Advncd Care Plan 30 Min
--- NOTE | 2021-09-29 15:26 | NURSING ---
MED SURG GER COVLINETTE 19, HYPOXIC RESP FAILURE
[2021-09-29 15:41] LABS: Troponin-I HS 6 pg/mL (3.0-54.0)
[2021-09-29 17:00] LABS: Ferritin 165 ng/mL (8-252); LDH 160 U/L (84-246)
--- NOTE | 2021-09-29 17:08 | PCS.PANDOC ---
PANDEMIC DOCUMENTATION INITIATED: Date: 05/17/2021 Time: 190
[2021-09-29] MEDS: 0.9% Normal Saline 1,000 ML 100 ML IV (18:20)
[2021-09-29] MEDS: 0.9% Saline Lock 10 ML Syringe IV (18:21)
[2021-09-29] MEDS: Potassium Chloride Oral Tablet 20 MEQ 40 MEQ PO (18:37)
[2021-09-29 18:46] LABS: Procalcitonin 0.04 ng/mL (0.00-0.09)
[2021-09-29] MEDS: Enoxaparin 30 MG/0.3 ML Syringe SC (21:26)
[2021-09-29] MEDS: Atorvastatin Calcium 40 MG Tablet PO (21:26)
[2021-09-29] MEDS: hydrOXYzine PAM 25 MG Capsule PO (22:28)
[2021-09-29] MEDS: guaiFENesin 600 MG Tablet PO (22:28)
[2021-09-29] MEDS: Carvedilol 6.25 MG Tablet PO (22:28)
[2021-09-29] MEDS: MELATONIN 3 MG TABLET PO (22:32)
[2021-09-30] VITALS (11 sets, daily range): BP systolic 92–143; BP diastolic 61–84; PULSE 66–92; RESP 16–20; TEMP 35.6–36.3; O2SAT 88–96
[2021-09-30 06:26] LABS: Absolute Lymphocyte Count 0.76 X10^3/uL (0.83-4.51); Absolute Neutrophil Count 4.2 X10^3/uL (2.0-7.7); Hematocrit 41.4 % (37-47); Hemoglobin 13.2 g/dL (12.0-15.0); Lymphocyte # 0.76 X10^3/ul (0.83-4.51); Lymphocyte % 14.1 % (19-41); Mean Corp Hgb Conc 31.9 g/dL (32-36); Mean Corpuscular Hgb 28.4 pg (27.0-32.0); Mean Platelet Vol. 10.9 fl (6.2-12.0); Monocyte# 0.44 X10^3/uL; Monocyte% 8.2 % (0-10); NRBC Flagged by Analyzer 0 % (0-5); Neutrophil # 4.16 X10^3/uL (2.7-7.7); Neutrophil % 77.3 % (47-70); Platelet Count 150 K/mm3 (150-450); RBC Distribution Width CV 13.6 % (11.6-14.6); RBC Distribution Width SD 44.9 fl (35.1-43.9); Red Blood Count 4.65 M/mm3 (4.2-5.4); White Blood Count 5.4 K/mm3 (4.4-11.0)
[2021-09-30 07:00] LABS: ALB/GLOB Ratio 0.7 RATIO (0.9-2.4); AST(SGOT) 13 U/L (15-37); Alanine Aminotransfer ALT/SGPT 18 U/L (13-56); Albumin, Serum 2.5 g/dL (3.2-5.0); Alkaline Phosphatase 84 U/L (45-117); Anion Gap 7 (5-15); BUN 9 mg/dL (7-18); BUN/Creat Ratio 18.4 RATIO (10-20); Calcium,Total 8.2 mg/dL (8.5-10.1); Chloride 110 mmol/L (98-107); Creatinine, Serum 0.49 mg/dL (0.55-1.02); EST Glomerular Filtration Rate 135 mL/min (>60); Est Glom Filt Rate - Afr Amer 163 mL/min (>60); Estimated Creatinine Clearance 89.81 ml/min; Globulin 3.8 g/dL (2.2-4.2); Glucose 141 mg/dL (74-106); Potassium 3.7 mmol/L (3.5-5.1); Protein, Total 6.3 g/dL (6.4-8.2); Sodium Level 141 mmol/L (136-145)
[2021-09-30 07:30] LABS: Hemoglobin A1c 5.4 % (3.8-5.6)
[2021-09-30] MEDS: Carvedilol 6.25 MG Tablet PO ×2 (09:39→22:40)
[2021-09-30] MEDS: Aspirin E.C. 81 MG Tablet PO (09:40)
[2021-09-30] MEDS: hydrOXYzine PAM 25 MG Capsule PO ×2 (09:40→20:50)
[2021-09-30] MEDS: guaiFENesin 600 MG Tablet PO ×2 (09:40→20:41)
[2021-09-30] MEDS: dexAMETHasone 10 MG/ML Vial 6 MG IV (09:42)
[2021-09-30] MEDS: 0.9% Saline Lock 10 ML Syringe IV ×2 (09:44→20:41)
[2021-09-30] MEDS: Enoxaparin 30 MG/0.3 ML Syringe SC ×2 (09:46→20:41)
--- NOTE | 2021-09-30 13:45 | CASEMGMT ---
RN CM Assessment: Face to Face with patient for initial transition planning/care coordination assessment. CCM introduced self and role at [facility]. Care providers, pharmacy, and demographics verified. PCP: Fer Specialists: China Crawford- pulmonology, Evert- cardiology Preferred Pharmacy: [facility] Insurance: [place] & Medicare Prescription Benefit: yes Living Will/HPOA: Patient does not have LW/HPOA. LNOK: , Tee Arango Living Arrangements: Patient lives with in one story house with no steps to enter the home. Patient states she needs assistance with ADLs prior to hospitalization and reports feeling weak. Social: former smoker (quit 2018), denies ETOH use Transportation: Self/ DME/HHC: Patient has BSC, shower chair, walker and cane at home. Patient has home oxygen concentrator, as well as portable oxygen tanks, supplied by [employer] and ordered at 3LPM as needed (prescribed in July 2021 following inpatient admission for pneumonia). Patient has had previous HHC in July 2021 but unsure of company. Denies previous SNF stays. Patient has had COVID symptoms since 09/26. First tested positive for COVID at [facility] on 09/29/21. Patient is unvaccinated against COVID. also has a cough and is waiting on COVID test results. Plan: home, follow PT/OT, patient agreeable to HHC
--- NOTE | 2021-09-30 13:53 | PN.HOSP_ITS ---
Subjective Subjective Patient seeen and examined. She still compalins of feeling weak and tired. She has no other complaints and review of systems is otherwise negative. She is on 3L of oxygen. Objective Data Objective Data Vital Signs: Vital Signs Temp Pulse Resp BP Pulse Ox 97.4 F L 66 20 H 143/84 H 94 09/30/21 09:35 09/30/21 11:00 09/30/21 09:35 09/30/21 09:35 09/30/21 09:35 Oxygen Flow Rate (L/min) 3 Oxygen Delivery Method Nasal Cannula Weight: 109 lb 9.116 oz Body Mass Index (BMI) 21.9 Intake & Output: Intake and Output for Last 24 Hours 09/28/21 09/29/21 09/30/21 23:59 23:59 23:59 Intake Total 250 / 550 1740 / 1740 Output Total 500 / 500 Balance 250 / 50 1240 / 1240 Lab / Micro Data Result Diagrams: 09/30/21 06:06 09/30/21 06:06 Labs: Laboratory Results - last 24 hr 09/29/21 12:00: Magnesium 2.0, Ferritin 165, Lactate Dehydrogenase 160, C-React Prot Ext Range 19.40 H 09/29/21 12:08: Troponin I High Sens 6 09/29/21 17:23: Procalcitonin 0.04 09/30/21 06:06: WBC 5.4, RBC 4.65, Hgb 13.2, Hct 41.4, MCV 89.0, MCH 28.4, MCHC 31.9 L, RDW Std Deviation 44.9 H, RDW Coeff of Aminah 13.6, Plt Count 150, MPV 10.9, Immature Gran % (Auto) 0.400, Neut % (Auto) 77.3 H, Lymph % (Auto) 14.1 L, [place] % (Auto) 8.2, Eos % (Auto) 0.0, Baso % (Auto) 0.0, Absolute Neuts (auto) 4.2, Absolute Lymphs (auto) 0.76 L, Nucleated RBC % 0 09/30/21 06:06: Sodium 141, Potassium 3.7, Chloride 110 H, Carbon Dioxide 24.0, Anion Gap 7, BUN 9, Creatinine 0.49 L, Estim Creat Clear Calc 89.81, Est GFR (MDRD) Af Amer 163, Est GFR (MDRD) Non-Af 135, BUN/Creatinine Ratio 18.4, Glucose 141 H, Calcium 8.2 L, Total Bilirubin 0.40, AST 13 L, ALT 18, Alkaline Phosphatase 84, Total Protein 6.3 L, Albumin 2.5 L, Globulin 3.8, Albumin/Gl obulin Ratio 0.7 L 09/30/21 06:06: Hemoglobin A1c 5.4 Micro: Microbiology 09/29/21 20:30 Urine, Random Legionella Antigen - Final 09/29/21 20:30 Urine, Random Streptococcus pneumoniae Antigen (M - Final 09/29/21 12:05 Nasal Secretion SARS-CoV-2 Antigen (Rapid) - Final SARS-CoV-2 (COVID 19) Radiography Diagnostic Testing: Radiology Impression Chest CTA 09/29/21 13:23 IMPRESSION: Normal CTA chest examination, without a demonstrated pulmonary embolism or arterial dissection. Electronically Signed: Eloy Bernstein MD at 14:38 EST Tel , Service support , Physical Exam Const alert, oriented x3 and no apparent distress Orientation / Consciousness: lethargic Exam Limitations: no limitations HEENT head/scalp atraumatic Head and Scalp: normocephalic Mouth: dry mucous membranes Eyes PERRL, EOMs intact bilaterally and conjunctivae normal Neck no lymphadenopathy Resp Resp Narrative: diminished breath sounds bibasally, no wheezes or crackles. On 3L of oxygen by nasal canula. Cardio regular rate, regular rhythm, S1 normal heart sound, S2 normal heart sound and no murmurs GI normal to inspection, nondistended, normoactive bowel sounds, soft to palpation, non-tender and non-distended Extremity normal to inspection, full ROM and no clubbing, cyanosis or edema Peripheral Pulses: Yes pulses 2+ throughout Skin no rashes or lesions noted Neuro oriented x3, CN's II-XII intact bilaterally and moves all extremities Sensorium / Orientation: awake and alert Psych affect normal Assessment & Plan Assessment/Plan (1) Acute respiratory failure with hypoxia: PLAN: #Acute hypoxic respiratory failure due to covid 19 pneumonia * On remdesivir and Decadron. * Titrate oxygen to maintain saturation above 90%. Breathing treatments of bronchodilators. * Diurese as needed to maintain saturation above 90%. * Urine for strep and Legionella are negative. Respiratory panel is pending and Gram stain is pending. * #Hyperlipidemia: On statin #Hypokalemia: Resolved #History of nonischemic cardiomyopathy: On aspirin and statin as well as beta- dahiana. #Hypertension: on carvedilol #COPD: refuses aerosols. on albuterol inhaler. DVT prophylaxis:lovenox Charges/Coding Visit Charges Inpatient E&M: 38895 Subs Hosp L3
--- NOTE | 2021-09-30 14:51 | CASEMGMT ---
List of in-network Home Health Agencies provided to patient.
--- NOTE | 2021-09-30 15:01 | CASEMGMT ---
Per Alexandra at [facility], patient's oxygen order is for 3LPM continuous. -Ruddy RN CM
--- NOTE | 2021-09-30 15:24 | CASEMGMT ---
Green sheet on chart for increased home oxygen need. Rodrigo FALL CM
[2021-09-30] MEDS: Atorvastatin Calcium 40 MG Tablet PO (20:41)
[2021-09-30] MEDS: BENZOCAINE/MENTHOL 1 LOZENGE MUCOUS MEM (22:30)
[2021-09-30] MEDS: MELATONIN 3 MG TABLET PO (22:43)
[2021-10-01] VITALS (11 sets, daily range): BP systolic 97–126; BP diastolic 49–87; PULSE 58–77; RESP 16–18; TEMP 36.2–36.6; O2SAT 90–100
[2021-10-01 06:14] LABS: Absolute Lymphocyte Count 1.17 X10^3/uL (0.83-4.51); Absolute Neutrophil Count 6.2 X10^3/uL (2.0-7.7); Basophil# 0.01 X10^3/uL; Basophil% 0.1 % (0-1); Hematocrit 41.5 % (37-47); Hemoglobin 13.2 g/dL (12.0-15.0); Lymphocyte # 1.17 X10^3/ul (0.83-4.51); Lymphocyte % 14.1 % (19-41); Mean Corp Hgb Conc 31.8 g/dL (32-36); Mean Corpuscular Hgb 28.3 pg (27.0-32.0); Mean Corpuscular Volume 89.1 fL (81-99); Mean Platelet Vol. 11.4 fl (6.2-12.0); Monocyte# 0.93 X10^3/uL; Monocyte% 11.2 % (0-10); NRBC Flagged by Analyzer 0 % (0-5); Neutrophil # 6.16 X10^3/uL (2.7-7.7); Platelet Count 196 K/mm3 (150-450); RBC Distribution Width CV 13.9 % (11.6-14.6); RBC Distribution Width SD 45.3 fl (35.1-43.9); Red Blood Count 4.66 M/mm3 (4.2-5.4); White Blood Count 8.3 K/mm3 (4.4-11.0)
[2021-10-01 06:52] LABS: Anion Gap 5 (5-15); BUN 14 mg/dL (7-18); Calcium,Total 8.3 mg/dL (8.5-10.1); Chloride 109 mmol/L (98-107); Creatinine, Serum 0.52 mg/dL (0.55-1.02); EST Glomerular Filtration Rate 126 mL/min (>60); Est Glom Filt Rate - Afr Amer 152 mL/min (>60); Estimated Creatinine Clearance 86.33 ml/min; Glucose 136 mg/dL (74-106); Potassium 3.3 mmol/L (3.5-5.1); Sodium Level 142 mmol/L (136-145)
[2021-10-01] MEDS: Potassium Chloride Oral Tablet 20 MEQ 40 MEQ PO (08:46)
[2021-10-01] MEDS: guaiFENesin 600 MG Tablet PO ×2 (08:48→20:39)
[2021-10-01] MEDS: dexAMETHasone 10 MG/ML Vial 6 MG IV (08:48)
[2021-10-01] MEDS: 0.9% Saline Lock 10 ML Syringe IV ×2 (08:48→20:39)
[2021-10-01] MEDS: hydrOXYzine PAM 25 MG Capsule PO ×2 (08:48→20:39)
[2021-10-01] MEDS: Carvedilol 6.25 MG Tablet PO ×2 (08:48→20:39)
[2021-10-01] MEDS: Enoxaparin 30 MG/0.3 ML Syringe SC ×2 (08:48→20:38)
[2021-10-01] MEDS: Aspirin E.C. 81 MG Tablet PO (08:48)
--- NOTE | 2021-10-01 14:03 | PN.HOSP_ITS ---
Subjective Subjective Patient seen and examined. She had no active complaints today. She remains on 3 L of oxygen. Review of systems otherwise negative. Objective Data Objective Data Vital Signs: Vital Signs Temp Pulse Resp BP Pulse Ox 97.1 F L 65 16 124/59 H 94 10/01/21 08:43 10/01/21 08:43 10/01/21 08:43 10/01/21 08:43 10/01/21 10:00 Oxygen Flow Rate (L/min) 2 Oxygen Delivery Method Nasal Cannula Weight: 111 lb 12.39 oz Body Mass Index (BMI) 21.9 Intake & Output: Intake and Output for Last 24 Hours 09/29/21 09/30/21 10/01/21 23:59 23:59 23:59 Intake Total 250 / 550 1979 / 1979 490 / 490 Output Total 500 / 500 Balance 250 / 50 1480 / 1480 490 / 490 Lab / Micro Data Result Diagrams: 10/01/21 05:44 10/01/21 05:44 Labs: Laboratory Results - last 24 hr 10/01/21 05:44: WBC 8.3, RBC 4.66, Hgb 13.2, Hct 41.5, MCV 89.1, MCH 28.3, MCHC 31.8 L, RDW Std Deviation 45.3 H, RDW Coeff of Aminah 13.9, Plt Count 196, MPV 11.4, Immature Gran % (Auto) 0.600, Neut % (Auto) 74.0 H, Lymph % (Auto) 14.1 L, [place] % (Auto) 11.2 H, Eos % (Auto) 0.0, Baso % (Auto) 0.1, Absolute Neuts (auto) 6.2, Absolute Lymphs (auto) 1.17, Nucleated RBC % 0 10/01/21 05:44: Sodium 142, Potassium 3.3 L, Chloride 109 H, Carbon Dioxide 28.0, Anion Gap 5, BUN 14, Creatinine 0.52 L, Estim Creat Clear Calc 86.33, Est GFR (MDRD) Af Amer 152, Est GFR (MDRD) Non-Af 126, BUN/Creatinine Ratio 27.0 H, Glucose 136 H, Calcium 8.3 L Micro: Microbiology 09/30/21 09:50 Sputum, Expectorated/Coughed Gram Stain - Final 09/30/21 09:50 Sputum, Expectorated/Coughed Respiratory Culture - Preliminary Staphylococcus aureus 09/29/21 20:30 Urine, Random Legionella Antigen - Final 09/29/21 20:30 Urine, Random Streptococcus pneumoniae Antigen (M - Final 09/29/21 12:05 Nasal Secretion SARS-CoV-2 Antigen (Rapid) - Final SARS-CoV-2 (COVID 19) Physical Exam Const alert, oriented x3 and no apparent distress Exam Limitations: no limitations HEENT head/scalp atraumatic, moist oral mucous membranes and oropharynx normal Head and Scalp: normocephalic Eyes PERRL, EOMs intact bilaterally and conjunctivae normal Neck no lymphadenopathy Resp Resp Narrative: diminished breath sounds bibasally, no wheezes or crackles. On 3L of oxygen by nasal canula. Cardio regular rate, regular rhythm, S1 normal heart sound, S2 normal heart sound and no murmurs GI normal to inspection, nondistended, normoactive bowel sounds, soft to palpation, non-tender and non-distended Extremity normal to inspection, full ROM and no clubbing, cyanosis or edema Peripheral Pulses: Yes pulses 2+ throughout Skin no rashes or lesions noted Neuro oriented x3, CN's II-XII intact bilaterally and moves all extremities Sensorium / Orientation: awake and alert Psych affect normal Assessment & Plan Assessment/Plan (1) Acute respiratory failure with hypoxia: PLAN: #Acute hypoxic respiratory failure due to covid 19 pneumonia * On remdesivir and Decadron. * Titrate oxygen to maintain saturation above 90%. Breathing treatments of bronchodilators. * Diurese as needed to maintain saturation above 90%. * Urine for strep and Legionella are negative. Respiratory panel is pending and Gram stain is pending. * on 3L of oxygen. * #Hypokalemia: K is 3.3. Will replace and trend. * #Hyperlipidemia: On statin #Hypokalemia: Resolved #History of nonischemic cardiomyopathy: On aspirin and statin as well as beta- dahiana. #Hypertension: on carvedilol #COPD: refuses aerosols. on albuterol inhaler. DVT prophylaxis:lovenox Charges/Coding Visit Charges Inpatient E&M: 52206 Subs Hosp L2
[2021-10-01] MEDS: guaiFENesin 10 ML UDC (200MG/10ML) 20 ML PO ×2 (14:28→18:28)
[2021-10-01] MEDS: Albuterol Sulfate 8 gm Inhaler (60 puffs) INHALATION (16:28)
[2021-10-01] MEDS: BENZOCAINE/MENTHOL 1 LOZENGE MUCOUS MEM (18:27)
[2021-10-01] MEDS: Atorvastatin Calcium 40 MG Tablet PO (20:39)
[2021-10-01] MEDS: MELATONIN 3 MG TABLET PO (20:40)
[2021-10-02] VITALS (13 sets, daily range): BP systolic 103–121; BP diastolic 42–56; PULSE 58–79; RESP 18–20; TEMP 36–36.6; O2SAT 87–99
[2021-10-02] MEDS: 0.9% Saline Lock 10 ML Syringe IV ×2 (05:53→21:28)
[2021-10-02 08:05] LABS: Absolute Lymphocyte Count 0.93 X10^3/uL (0.83-4.51); Basophil# 0.02 X10^3/uL; Basophil% 0.2 % (0-1); Hematocrit 42.3 % (37-47); Hemoglobin 13.5 g/dL (12.0-15.0); Lymphocyte # 0.93 X10^3/ul (0.83-4.51); Lymphocyte % 9.1 % (19-41); Mean Corp Hgb Conc 31.9 g/dL (32-36); Mean Corpuscular Hgb 28.4 pg (27.0-32.0); Mean Corpuscular Volume 88.9 fL (81-99); Mean Platelet Vol. 11.8 fl (6.2-12.0); Monocyte# 1.29 X10^3/uL; Monocyte% 12.6 % (0-10); NRBC Flagged by Analyzer 0 % (0-5); Neutrophil # 7.98 X10^3/uL (2.7-7.7); Neutrophil % 77.7 % (47-70); Platelet Count 194 K/mm3 (150-450); RBC Distribution Width CV 14.1 % (11.6-14.6); RBC Distribution Width SD 45.8 fl (35.1-43.9); Red Blood Count 4.76 M/mm3 (4.2-5.4); White Blood Count 10.3 K/mm3 (4.4-11.0)
[2021-10-02] MEDS: Enoxaparin 30 MG/0.3 ML Syringe SC ×2 (08:30→21:28)
[2021-10-02] MEDS: BENZOCAINE/MENTHOL 1 LOZENGE MUCOUS MEM (08:30)
[2021-10-02] MEDS: guaiFENesin 10 ML UDC (200MG/10ML) 20 ML PO ×2 (08:30→12:36)
[2021-10-02] MEDS: Carvedilol 6.25 MG Tablet PO ×2 (08:32→21:28)
[2021-10-02] MEDS: Aspirin E.C. 81 MG Tablet PO (08:32)
[2021-10-02] MEDS: hydrOXYzine PAM 25 MG Capsule PO ×2 (08:32→21:28)
[2021-10-02] MEDS: guaiFENesin 600 MG Tablet PO ×2 (08:33→21:28)
[2021-10-02] MEDS: dexAMETHasone 10 MG/ML Vial 6 MG IV (08:33)
[2021-10-02 09:03] LABS: Anion Gap 6 (5-15); BUN 14 mg/dL (7-18); BUN/Creat Ratio 30.4 RATIO (10-20); Calcium,Total 8.3 mg/dL (8.5-10.1); Chloride 106 mmol/L (98-107); Creatinine, Serum 0.46 mg/dL (0.55-1.02); EST Glomerular Filtration Rate 145 mL/min (>60); Est Glom Filt Rate - Afr Amer 175 mL/min (>60); Estimated Creatinine Clearance 96.43 ml/min; Glucose 125 mg/dL (74-106); Potassium 3.9 mmol/L (3.5-5.1); Sodium Level 142 mmol/L (136-145)
--- NOTE | 2021-10-02 12:21 | PN.HOSP_ITS ---
Subjective Subjective Patient seen and examined. States she feels weak and tired today. She has no active complaints. Review of systems otherwise negative. She remains on her basline 3L of oxygen, but feels too weak to go home today. REview of systems was othewise negative. Objective Data Objective Data Vital Signs: Vital Signs Temp Pulse Resp BP Pulse Ox 97.6 F L 78 18 121/53 H 87 10/02/21 08:28 10/02/21 11:01 10/02/21 08:28 10/02/21 08:28 10/02/21 08:37 Oxygen Flow Rate (L/min) [ 4 AMBULATING with Oxygen #2] Oxygen Flow Rate (L/min) [ 2 AMBULATING with Oxygen #1] Oxygen Flow Rate (L/min) [At 2 REST with Oxygen] Oxygen Flow Rate (L/min) 2 Oxygen Delivery Method Nasal Cannula Weight: 110 lb 7.225 oz Body Mass Index (BMI) 21.9 Intake & Output: Intake and Output for Last 24 Hours 09/30/21 10/01/21 10/02/21 23:59 23:59 23:59 Intake Total 1979 / 1979 740 / 740 Output Total 500 / 500 Balance 1480 / 1480 740 / 740 Lab / Micro Data Result Diagrams: 10/02/21 06:27 10/02/21 06:27 Labs: Laboratory Results - last 24 hr 10/02/21 06:27: WBC 10.3, RBC 4.76, Hgb 13.5, Hct 42.3, MCV 88.9, MCH 28.4, MCHC 31.9 L, RDW Std Deviation 45.8 H, RDW Coeff of Aminah 14.1, Plt Count 194, MPV 11.8, Immature Gran % (Auto) 0.400, Neut % (Auto) 77.7 H, Lymph % (Auto) 9.1 L, Imperial % (Auto) 12.6 H, Eos % (Auto) 0.0, Baso % (Auto) 0.2, Absolute Neuts (auto) 8.0 H, Absolute Lymphs (auto) 0.93, Nucleated RBC % 0 10/02/21 06:27: Sodium 142, Potassium 3.9, Chloride 106, Carbon Dioxide 30.0, Anion Gap 6, BUN 14, Creatinine 0.46 L, Estim Creat Clear Calc 96.43, Est GFR (MDRD) Af Amer 175, Est GFR (MDRD) Non-Af 145, BUN/Creatinine Ratio 30.4 H, Glucose 125 H, Calcium 8.3 L Micro: Microbiology 09/30/21 09:50 Sputum, Expectorated/Coughed Gram Stain - Final 09/30/21 09:50 Sputum, Expectorated/Coughed Respiratory Culture - Final Staphylococcus aureus 09/29/21 20:30 Urine, Random Legionella Antigen - Final 09/29/21 20:30 Urine, Random Streptococcus pneumoniae Antigen (M - Final 09/29/21 12:05 Nasal Secretion SARS-CoV-2 Antigen (Rapid) - Final SARS-CoV-2 (COVID 19) Physical Exam Const alert, oriented x3 and no apparent distress Orientation / Consciousness: lethargic Exam Limitations: no limitations HEENT head/scalp atraumatic, moist oral mucous membranes and oropharynx normal Head and Scalp: normocephalic Eyes PERRL, EOMs intact bilaterally and conjunctivae normal Neck no lymphadenopathy Resp Resp Narrative: diminished breath sounds bibasally, no wheezes or crackles. Still on 3L of oxygen by nasal canula. Cardio regular rate, regular rhythm, S1 normal heart sound, S2 normal heart sound and no murmurs GI normal to inspection, nondistended, normoactive bowel sounds, soft to palpation, non-tender and non-distended Extremity normal to inspection, full ROM and no clubbing, cyanosis or edema Peripheral Pulses: Yes pulses 2+ throughout Skin no rashes or lesions noted Neuro oriented x3, CN's II-XII intact bilaterally and moves all extremities Sensorium / Orientation: awake and alert Psych affect normal Assessment & Plan Assessment/Plan (1) Acute respiratory failure with hypoxia: PLAN: #Acute hypoxic respiratory failure due to covid 19 pneumonia * On remdesivir and Decadron. * Titrate oxygen to maintain saturation above 90%. Breathing treatments of bronchodilators. * Diurese as needed to maintain saturation above 90%. * Urine for strep and Legionella are negative. Respiratory panel is pending and Gram stain is pending. * remains on 3L of oxygen * #Hypokalemia: K is 3.9. resolved. * #Hyperlipidemia: On statin #Hypokalemia: Resolved #History of nonischemic cardiomyopathy: On aspirin and statin as well as beta- dahiana. #Hypertension: on carvedilol #COPD: refuses aerosols. on albuterol inhaler. DVT prophylaxis:lovenox Disposition: feels too weak to go home today. Anticipate discharge over next 24- 48 hours Charges/Coding Visit Charges Inpatient E&M: 08122 Subs Hosp L2
[2021-10-02] MEDS: Atorvastatin Calcium 40 MG Tablet PO (21:28)
[2021-10-03 02:59] VITALS: PULSE 73
[2021-10-03 03:20] VITALS: BP 120/42; PULSE 75; RESP 18; TEMP 36.5; O2SAT 97
[2021-10-03 05:13] LABS: Absolute Lymphocyte Count 0.74 X10^3/uL (0.83-4.51); Absolute Neutrophil Count 9.3 X10^3/uL (2.0-7.7); Basophil# 0.02 X10^3/uL; Basophil% 0.2 % (0-1); Hematocrit 43.2 % (37-47); Hemoglobin 13.9 g/dL (12.0-15.0); Lymphocyte # 0.74 X10^3/ul (0.83-4.51); Lymphocyte % 6.2 % (19-41); Mean Corp Hgb Conc 32.2 g/dL (32-36); Mean Corpuscular Hgb 28.4 pg (27.0-32.0); Mean Corpuscular Volume 88.3 fL (81-99); Mean Platelet Vol. 11.4 fl (6.2-12.0); Monocyte# 1.74 X10^3/uL; Monocyte% 14.7 % (0-10); NRBC Flagged by Analyzer 0 % (0-5); Neutrophil % 78.4 % (47-70); POSITIVE DIFFERENTIAL YES; Platelet Count 215 K/mm3 (150-450); RBC Distribution Width CV 13.9 % (11.6-14.6); RBC Distribution Width SD 45.1 fl (35.1-43.9); Red Blood Count 4.89 M/mm3 (4.2-5.4); White Blood Count 11.9 K/mm3 (4.4-11.0)
[2021-10-03 05:41] LABS: Anion Gap 6 (5-15); BUN 10 mg/dL (7-18); BUN/Creat Ratio 25.8 RATIO (10-20); Calcium,Total 8.3 mg/dL (8.5-10.1); Chloride 103 mmol/L (98-107); Creatinine, Serum 0.39 mg/dL (0.55-1.02); EST Glomerular Filtration Rate 176 mL/min (>60); Est Glom Filt Rate - Afr Amer 213 mL/min (>60); Estimated Creatinine Clearance 113.74 ml/min; Glucose 128 mg/dL (74-106); Potassium 3.4 mmol/L (3.5-5.1); Sodium Level 138 mmol/L (136-145)
[2021-10-03 06:19] LABS: Differential Indicated SCAN CRITERIA MET
[2021-10-03 08:00] VITALS: PULSE 80
[2021-10-03] MEDS: Enoxaparin 30 MG/0.3 ML Syringe SC (09:23)
[2021-10-03] MEDS: dexAMETHasone 10 MG/ML Vial 6 MG IV (09:24)
[2021-10-03] MEDS: Aspirin E.C. 81 MG Tablet PO (09:24)
[2021-10-03] MEDS: guaiFENesin 600 MG Tablet PO (09:24)
[2021-10-03] MEDS: Carvedilol 6.25 MG Tablet PO (09:24)
[2021-10-03] MEDS: hydrOXYzine PAM 25 MG Capsule PO (09:24)
[2021-10-03] MEDS: Potassium Chloride Oral Tablet 20 MEQ 40 MEQ PO (09:29)
[2021-10-03 10:00] VITALS: BP 102/52; PULSE 84; RESP 16; TEMP 36.6; O2SAT 98
[2021-10-03 10:47] VITALS: O2SAT 95; O2SAT 98
--- NOTE | 2021-10-03 11:08 | PCM.DC.SUM ---
Providers Date of Admission: 09/29/21 Primary Care Physician: Dr. Hany Mornoe MD Reason For Visit: COVID, ACUTE RESPIRATORY FAILURE Diagnosis Discharge Diagnosis (1) Acute respiratory failure with hypoxia: Status: Acute Code(s): J96.01 - Acute respiratory failure with hypoxia Medications at Discharge Home Medications aspirin 81 mg tablet,delayed release 81 mg PO DAILY 10/31/19 atorvastatin 40 mg tablet 40 mg PO QHS 10/31/19 fluticasone fur. 100 mcg-umeclid 62.5 mcg-vilant 25 mcg inhalat.powder 1 inh INHALATION DAILY 11/10/20 guaifenesin 600 mg tablet, extended release 12 hr 600 mg PO BID 07/30/21 hydroxyzine HCl 25 mg tablet 25 mg PO BID tab 07/30/21 carvedilol 3.125 mg tablet 6.25 mg PO BID #180 tab 09/10/21 diphenhydramine HCl [Sleep Time] 25 mg PO QHS 09/29/21 phenylephrine HCl [Sudafed PE] 10 mg PO BID 09/29/21 dexamethasone 6 mg PO DAILY #6 tab 10/03/21 Hospital Course Operations None Procedures None Summary of Care Provided Minutes Spent on Discharge: 45 Hospital Course: Patient is a 66-year-old female with an extensive past medical history as outlined including chronic respiratory failure due to COPD on 3 L of oxygen at home. She was admitted through the ED on 09/29/2021 with a complaint of Covid-like symptoms like fever, chills, nausea and diarrhea as well as cough and shortness of breath. She was unvaccinated.CXR showed left greater than right basilar infiltrates consistent with early pneumonia; CTA of the chest showed no evidence of PE or arterial dissection. COVID test was positive. She was admitted and managed for acute on chronic hypoxic respiratory failure due to COVID 19 pneumoniia. She was started on decadron and remdesivir. Her shortness of breath gradually improved and she felt better. She was also able to work with physical therapy. Patient remained stable and was discharged home on 10/03/2021 on the basis on 3 L of oxygen. She is to follow-up with her primary care doctor in 2 weeks. She is to remain in self-isolation till October 16, 2021 to complete a 20-day period of self-isolation. She was discharged home on p.o. Decadron to complete a 10-day course of Decadron. Patient was seen and examined prior to discharge. She had no active complaints and felt well. Review systems otherwise negative. Labs and vitals reviewed. Home medication reviewed and reconciled. Physical Exam Const alert, oriented x3 and no apparent distress General Appearance: cooperative, comfortable and well kempt Exam Limitations: no limitations HEENT normocephalic, head/scalp atraumatic, moist oral mucous membranes and oropharynx normal Eyes PERRL, EOMs intact bilaterally and conjunctivae normal Neck no lymphadenopathy Resp Resp Narrative: diminished breath sounds bibasally, no wheezes or crackles. Remains on 3L of oxygen by nasal canula. Cardio regular rate, regular rhythm, S1 normal heart sound, S2 normal heart sound and no murmurs GI normal to inspection, nondistended, normoactive bowel sounds, soft to palpation, non-tender and non-distended Extremity normal to inspection, full ROM and no clubbing, cyanosis or edema Skin no rashes or lesions noted Neuro oriented x3, CN's II-XII intact bilaterally and moves all extremities Sensorium / Orientation: awake and alert Psych affect normal Weight / BMI Weight Weight: 109 lb 12.643 oz Body Mass Index (BMI) 21.9 ABG / Lab / Microbiology Data Result Diagrams: 10/03/21 04:25 10/03/21 04:25 Laboratory: Laboratory Results - last 24 hr 10/03/21 04:25: WBC 11.9 H, RBC 4.89, Hgb 13.9, Hct 43.2, MCV 88.3, MCH 28.4, MCHC 32.2, RDW Std Deviation 45.1 H, RDW Coeff of Aminah 13.9, Plt Count 215, MPV 11.4, Immature Gran % (Auto) 0.500, Neut % (Auto) 78.4 H, Lymph % (Auto) 6.2 L, Daniels % (Auto) 14.7 H, Eos % (Auto) 0.0, Baso % (Auto) 0.2, Absolute Neuts (auto) 9.3 H, Absolute Lymphs (auto) 0.74 L, Nucleated RBC % 0, Diff Path Review January foll 10/03/21 04:25: Sodium 138, Potassium 3.4 L, Chloride 103, Carbon Dioxide 29.0, Anion Gap 6, BUN 10, Creatinine 0.39 L, Estim Creat Clear Calc 113.74, Est GFR (MDRD) Af Amer 213, Est GFR (MDRD) Non-Af 176, BUN/Creatinine Ratio 25.8 H, Glucose 128 H, Calcium 8.3 L Microbiology: Microbiology 09/30/21 09:50 Sputum, Expectorated/Coughed Gram Stain - Final 09/30/21 09:50 Sputum, Expectorated/Coughed Respiratory Culture - Final Staphylococcus aureus 09/29/21 20:30 Urine, Random Legionella Antigen - Final 09/29/21 20:30 Urine, Random Streptococcus pneumoniae Antigen (M - Final 09/29/21 12:05 Nasal Secretion SARS-CoV-2 Antigen (Rapid) - Final SARS-CoV-2 (COVID 19) D/C Instructions Discharge Diet: Low fat / Low cholesterol Discharge Activity: Return to Normal Activity Weight Bearing Status: Weight bearing as tolerated Call your doctor if you observe: Fever of 101 or Higher, Shortness of breath, Dizziness, Swelling in the ankles and Chest pain Meaningful Use Info Meaningful Use Diagnoses (Choose all that apply): None applicable Discharge Plan Admission Admit Date/Time: 09/29/21 15:17 Primary Reason for Your Visit: acute on chronic respiratory failure due to covid Attending Provider: Elaina Howe Primary Care Provider: Hany Monroe Instructions Patient Instructions: Coronavirus Disease 2019 (COVID-19): Overview, Coronavirus Disease 2019 (COVID-19): Caring for Yourself or Others Additional Instructions / Restrictions: remain in self isolation till Oct 16, 2021 Discharge Orders/Prescriptions Prescriptions: New dexamethasone 6 mg tablet 6 mg PO DAILY Qty: 6 RF: 0 Continued aspirin [Adult Aspirin Regimen] 81 mg tablet,delayed release (DR/EC) 81 mg PO DAILY RF: 0 atorvastatin 40 mg tablet 40 mg PO QHS RF: 0 Trelegy Ellipta 100-62.5-25 mcg blister with device 1 inh INHALATION DAILY RF: 0 hydroxyzine HCl 25 mg tablet 25 mg PO BID RF: 0 guaifenesin [Mucinex] 600 mg tablet extended release 12hr 600 mg PO BID RF: 0 diphenhydramine HCl [Sleep Time] 25 mg Capsule 25 mg PO QHS RF: 0 phenylephrine HCl [Sudafed PE] 10 mg Tablet 10 mg PO BID RF: 0 carvedilol 3.125 mg tablet 6.25 mg PO BID Qty: 180 RF: 3 Referrals / Follow Up: Hany Monroe MD [Primary Care Provider] - Within 2 Weeks Disposition Disposition (needs filled in before D/C Order can be placed): Home, Self Care Charges/Coding Visit Charges Inpatient E&M: 94292 Disch Hosp
[2021-10-03] MEDS: Acetaminophen 325 MG Tablet 650 MG PO (12:14)
[2021-10-04 13:38] LABS: Pathologist Review Reviewed
--- NOTE | 2021-10-05 16:38 | CASEMGMT ---
Pt's contacted this RN VALERIA regarding home health service set-up. In discussing with pt's reason for request, pt's states pt has become more lethargic today, has only gotten up to the [facility] once and otherwise has been lying in bed all day. States pt has only drunk one glass of 7up and has not eaten or taken her medications today. States pt is normally up and active in the home more than me. States this is not pt's baseline. Pt's reports pt's PO to be 88-92% on 3.5l/min O2. States he contacted PCP Dr. Monroe's office and spoke with nurse Maria M. A follow-up appointment was scheduled for 10/11 at 0740. There was not a sooner appointment available. Pt's also states pt was c/o her left lung hurting and the gave the patient 800mg tablet of Ibuprofen from his prescription and this alleviated pt's hurting but it has returned today. Pt's did hand to phone to the pt who stated she is having a bad day. When asked to further explain she said she has been coughing and which causes her chest to hurt. States she has not gotten out of bed because of lightheadedness, dizziness, and SOB. Pt checked her PO while on the phone and reported it to read 96%. Discussed need to get up and move around as well as to increase her fluid intake and take her medications. Educated both the patient and spouse if no improvement to return to the ED for evaluation or contact their PCP's office. Pt's did stated he had relayed these concerns to Maria M at Dr. Monroe's office but they could not get a soon appointment. Discussed home health PT/OT to promote strength. Discharging hospitalist is not working on this date so unable to get an order. Will follow-up with pt's PCP but pt's reported Maria M to state they could not order HH since pt was not seen at a [facility] hospital. Pt's states they do not have a preference in HH providers and does not recall the name of the HH provider that they had previously used. Will continue to follow and assist as able. Gary Bermudez RN CM
--- NOTE | 2021-10-07 10:41 | CASEMGMT ---
[facility] Follow-up: This JUAN DAVID SHAW contacted pt's in follow-up to request for home health and evaluation of pt's condition d/t complaints of lethargy on 10/05/21. Pt's reports pt to have on 10/06/21 stating pt continued to remain in bed on 10/05/21 and did not improve. Pt did not return to the ED for evaluation. Pt's reports to have checked on her 10/06 0700AM and pt was breathing and when he checked her at 0900 she had passed. Condolences offered. Gary Bermudez RN CM
== END 2021-10-03 13:12 | disposition home or self-care (01) | DRG 177 ==
LOC: ED 15:33 → PCU 20:49
PROVIDERS: Admitting Provider Family Medicine; Emergency Provider Student in an Organized Health Care Education/Training Program; PCP Family Medicine; Visit Provider Student in an Organized Health Care Education/Training Program
DX: U07.1 COVID-19 (principal); J12.82 Pneumonia due to coronavirus disease 2019; J96.21 Acute and chronic respiratory failure with hypoxia; I50.22 Chronic systolic (congestive) heart failure; J44.0 Chronic obstructive pulmonary disease with (acute) lower respiratory infection; I42.8 Other cardiomyopathies; I11.0 Hypertensive heart disease with heart failure; E78.5 Hyperlipidemia, unspecified; E87.6 Hypokalemia; R73.9 Hyperglycemia, unspecified; Z79.82 Long term (current) use of aspirin; Z87.891 Personal history of nicotine dependence; Z79.899 Other long term (current) drug therapy; Z99.81 Dependence on supplemental oxygen
CPT/HCPCS: 36415; 71045; 71275; 80048; 80053; 80076; 82728; 83036; 83615; 83735; 83880; 84145; 84484; 85025; 85379; 86140; 87070; 87077; 87186; 87205; 87426; 87449; 87633; 93005; 94760; 97110; 97162; 97166; 97530; 97802; 99251; 99284; J7030; J7050; Q9967; A4216; G0463; J0248